=== PATIENT | female | born 1955 | race Caucasian/White ===

== ENCOUNTER → 2017-01-06 | Outpatient (CLI) | payer BC ==
--- NOTE | 2017-01-09 14:14 | RAD ---
EXAM: DIGITAL SCREEN BILAT W/CAD HISTORY: Routine Screening. COMPARISON: 01/06/2016 Standard mammographic views are obtained of the bilateral breasts. This study was interpreted with the benefit of Computerized Aided Detection (CAD). FINDINGS: The breast parenchyma Is heterogenously dense, which could reduce sensitivity of mammography. Breast parenchyma level III.. There is no definite new suspicious spiculated mass or worrisome new cluster of microcalcifications. Right-sided biopsy clip is seen. IMPRESSION: No definite new suspicious mass. BI-RADS CATEGORY: 2 BENIGN FINDING RECOMMENDED FOLLOW-UP: 12M 12 MONTH FOLLOW-UP PQRS compliance statement: Patient information was entered into a reminder system with a target due date for the next mammogram. Mammography is a sensitive method for finding small breast cancers, but it does not detect them all and is not a substitute for careful clinical examination. A negative mammogram does not negate a clinically suspicious finding and should not result in delay in biopsying a clinically suspicious abnormality. "Our facility is accredited by the [employer] Mammography Program."
== END | disposition home or self-care (01) ==
LOC: MAMMO 09:17
PROVIDERS: ATTEND Family Medicine
DX: Z12.31 Encounter for screening mammogram for malignant neoplasm of breast (principal)
CPT/HCPCS: G0202; 77067

== ENCOUNTER → 2018-02-16 | Outpatient (CLI) | payer BC | END | disposition home or self-care (01) | LOC: MAMMO 08:42 | DX: Z12.31 Encounter for screening mammogram for malignant neoplasm of breast (principal) | CPT/HCPCS: 77067 ==

== ENCOUNTER 2018-07-12 23:58 | Emergency (ER) | payer BC ==
[~2018-07-12] VITALS: Ht 172.7 cm; Wt 81.6 kg
[2018-07-13 00:01] VITALS: BP 125/86
[2018-07-13] MEDS ORDERED: HYDROcodone/APAP 5/325MG 1 TAB TABLET PO ONE (00:30)
[2018-07-13] MEDS ORDERED: HYDR-971 PO (00:47)
--- NOTE | 2018-07-13 00:48 | PHYS DOC ---
Past Medical History Past Medical History: Depression, GERD, High Cholesterol, Hypertension Past Surgical History: Tonsillectomy Additional Past Surgical Histo: Bowel Obstruction, Right Shoulder Alcohol Use: None Drug Use: None Adult General Chief Complaint Chief Complaint: MECHANICAL FALL HPI HPI Patient is a 63 year old F who presents with left hip pain after tripping and falling on the sidewalk tonight. She reports left shoulder pain, but has full ROM. Review of Systems Review of Systems Respiratory: Denies cough or shortness of breath [] Cardiovascular: No additional information not addressed in HPI [] Musculoskeletal: Reports left hip pain Integument: Denies rash or skin lesions [] Neurologic: Denies focal weakness or sensory changes [] All other systems were reviewed and found to be within normal limits, except as documented in this note. Current Medications Current Medications Current Medications Medications (Trade) Dose Ordered Sig/Eliu Start Time Stop Time Status Last Admin Dose Admin Acetaminophen/ Hydrocodone Bitart (Lortab 5/325) 1 tab 1X ONCE 07/13/18 00:30 07/13/18 00:31 DC 07/13/18 00:23 1 TAB Allergies Allergies Allergies Coded Allergies Type Severity Reaction Last Updated Verified Penicillins Allergy Intermediate 07/13/18 Yes Sulfa (Sulfonamide Antibiotics) Allergy Intermediate 07/13/18 Yes erythromycin base Allergy Intermediate 07/13/18 Yes Physical Exam Physical Exam Constitutional: Well developed, well nourished, no acute distress, non-toxic appearance. [] HENT: Normocephalic, atraumatic Eyes: PERRLA, EOMI, conjunctiva normal, no discharge. [] Neck: Normal range of motion, no tenderness, supple, no stridor. [] Skin: Warm, dry, no erythema, no rash. [] Extremities: Left hip tenderness, limited ROM Neurologic: Alert and oriented X 3, normal motor function, normal sensory function, no focal deficits noted. [] Psychologic: Affect normal, judgement normal, mood normal. [] Current Patient Data Vital Signs Vital Signs Date Time Temp Pulse Resp B/P (MAP) Pulse Ox O2 Delivery O2 Flow Rate FiO2 07/13/18 00:01 98.4 79 16 125/86 (99) 98 Room Air 98.4 EKG EKG [] Radiology/Procedures Radiology/Procedures XR left hip -- no acute findings, arthritic changes[] Course & Med Decision Making Course & Med Decision Making Pertinent Labs and Imaging studies reviewed. (See chart for details) Plan: lortab rx, f/u with PCP, return precautions reviewed Des Disclaimer Des Disclaimer This electronic medical record was generated, in whole or in part, using a voice recognition dictation system. Departure Departure Impression: Primary Impression: Contusion of hip Disposition: HOME, SELF-CARE Condition: GOOD Referrals: EMIGDIO GAITAN DO (PCP) Patient Instructions: Hip Pain Scripts Hydrocodone/Apap 5-325 (NORCO 5-325 TABLET) 1 Each Tablet 1-2 TAB PO Q4-6HRS, #20 TAB Prov: MOMO KHAN LEAD SOFTWARE DEVELOPER 07/13/18 Problem Qualifiers Primary Impression: Contusion of hip Encounter type: initial encounter Laterality: left Qualified Codes: S70.02XA - Contusion of left hip, initial encounter MOMO KHAN LEAD SOFTWARE DEVELOPER Jul 13, 2018 00:48
--- NOTE | 2018-07-13 07:54 | RAD ---
Indication: Pain to the left hip are performed TECHNIQUE: 3 views of the left hip COMPARISON: None FINDINGS: No acute fracture or dislocation. There is mild bilateral hip joint space narrowing with the sclerosis of the articular surface of the acetabulum suggesting mild bilateral hip joint arthritis. IMPRESSION: No acute fractures. Electronically signed by: Raman Del Rio DO (07/13/2018 7:50 AM) [facility]
== END 2018-07-13 01:05 | disposition home or self-care (01) ==
LOC: ER 23:58
DX: S70.02XA Contusion of left hip, initial encounter (principal); M25.512 Pain in left shoulder; F32.9 Major depressive disorder, single episode, unspecified; K21.9 Gastro-esophageal reflux disease without esophagitis; E78.00 Pure hypercholesterolemia, unspecified; I10 Essential (primary) hypertension; Z90.89 Acquired absence of other organs; Z88.0 Allergy status to penicillin; Z88.1 Allergy status to other antibiotic agents; Z88.2 Allergy status to sulfonamides; W01.0XXA Fall on same level from slipping, tripping and stumbling without subsequent striking against object, initial encounter; Y93.89 Activity, other specified; Y92.89 Other specified places as the place of occurrence of the external cause; Y99.8 Other external cause status
CPT/HCPCS: 73502; 99284

== ENCOUNTER → 2019-03-15 | Outpatient (CLI) | payer BC ==
[~2019-03-15] MED LIST: HYDR-3164 PO
--- NOTE | 2019-03-17 18:35 | RAD ---
DATE: 03/15/2019 EXAM: DIGITAL SCREEN BILAT W/CAD HISTORY: Routine screening COMPARISON: 02/16/2018, 01/06/2017, 01/06/2016 mammographic exams This study was interpreted with the benefit of Computerized Aided Detection (CAD). Breast Density: SCATTERED The breast parenchyma shows scattered fibroglandular densities. Breast parenchyma level B. FINDINGS: Biopsy clip marker is present involving the upper anterior right breast. No suspicious calcifications or distortion. No new mass. There is asymmetry involving the right upper breast which likely represent summation of breast parenchyma. It is 5.5 cm deep from the nipple. IMPRESSION: Asymmetry involving the right upper breast. Spot compression is recommended. Ultrasound may be needed. BI-RADS CATEGORY: 0 INCOMPLETE: NEEDS ADDITIONAL IMAGING EVALUATION AND/OR PRIOR MAMMOGRAMS FOR COMPARISON. RECOMMENDED FOLLOW-UP: ADD ADDITIONAL IMAGING PQRS compliance statement: Patient information was entered into a reminder system with a target due date pending additional views for the next mammogram. Mammography is a sensitive method for finding small breast cancers, but it does not detect them all and is not a substitute for careful clinical examination. A negative mammogram does not negate a clinically suspicious finding and should not result in delay in biopsying a clinically suspicious abnormality. "Our facility is accredited by the [employer] Mammography [employer]."
== END | disposition home or self-care (01) ==
LOC: MAMMO 09:32
PROVIDERS: ATTEND Family Medicine
DX: Z12.31 Encounter for screening mammogram for malignant neoplasm of breast (principal)
CPT/HCPCS: 77067

== ENCOUNTER → 2019-04-22 | Outpatient (CLI) | payer BC ==
--- NOTE | 2019-04-22 13:39 | RAD ---
DATE: 04/22/2019 EXAM: DIGITAL DIAGNOSTIC RT HISTORY: Suspicious screening study COMPARISON: 03/15/2019 This study was interpreted with the benefit of Computerized Aided Detection (CAD). Breast Density: HETERO The breast parenchyma is heterogenously dense, which could reduce sensitivity of mammography. Breast parenchyma level C. FINDINGS: Spot compression MLO and 3-D tomosynthesis imaging in CC and MLO projections was performed and correlated with the screening images. Heterogeneous fibroglandular type densities are present. No breast mass or suspicious nodule is seen. The density seen on one view of the screening exam appears to have represented a summation shadow. IMPRESSION: There is no mammographic evidence of malignancy in the right breast. BI-RADS CATEGORY: 2 BENIGN FINDING(S) RECOMMENDED FOLLOW-UP: 12M 12 MONTH FOLLOW-UP PQRS compliance statement: Patient information was entered into a reminder system with a target due date for the next mammogram. Mammography is a sensitive method for finding small breast cancers, but it does not detect them all and is not a substitute for careful clinical examination. A negative mammogram does not negate a clinically suspicious finding and should not result in delay in biopsying a clinically suspicious abnormality. "Our facility is accredited by the [employer] Mammography [employer]."
== END | disposition home or self-care (01) ==
LOC: MAMMO 15:23
PROVIDERS: ATTEND Family Medicine
DX: R92.8 Other abnormal and inconclusive findings on diagnostic imaging of breast (principal)
CPT/HCPCS: 77065

== ENCOUNTER → 2020-06-05 | Outpatient (CLI) | payer OTHER ==
--- NOTE | 2020-06-07 13:45 | RAD ---
BILATERAL SCREENING MAMMOGRAM History: Routine screening. Comparison: 03/15/2019, 02/16/2018, 01/06/2017, 01/06/2016. Technique: Routine bilateral digital mammogram views were obtained. Findings: Breast Tissue Density C : The breasts are heterogeneously dense, which may obscure small masses. There are no dominant masses, suspicious microcalcifications, or architectural distortion. Biopsy clip marker involves the right upper central breast anteriorly. IMPRESSION: No mammographic evidence of malignancy. Recommend routine screening. BI-RADS category 1: Negative. The images were reviewed with computer aided detection. Patient information is entered into the reminder system with a target due date for the next screening mammogram. Mammography is the most sensitive method for finding small breast cancers, but it does not detect them all and is not a substitute for careful clinical examination. A negative mammogram does not negate a clinically suspicious finding and should not result in delay in biopsying a clinically suspicious abnormality. "Our facility is accredited by the [employer] Mammography [employer]." Electronically signed by: Lucas Villela MD (06/07/2020 1:42 PM) [facility]
== END | disposition home or self-care (01) ==
LOC: MAMMO 09:00
PROVIDERS: ATTEND Family Medicine
DX: Z12.31 Encounter for screening mammogram for malignant neoplasm of breast (principal)
CPT/HCPCS: 77067